=== PATIENT | male | born 1945 | race African-American/Black ===

== ENCOUNTER 2017-09-16 11:51 | Emergency (ER) | payer MEDICARE, BC ==
[2017-09-16 12:51] LABS: #Basophils 0.2 thou/uL (0.0-0.2); #Eosinphils 0.1 thou/uL (0.0-0.7); #Lymphocytes 2.3 thou/uL (1.20-3.40); #Monocytes 1.2 thou/uL (0.11-0.59); #Neutrophils 12.4 thou/uL (1.40-6.50); %Basophils 1.2 % (0.0-1.0); %Eosinophils 0.7 % (0.0-10.0); %Lymphocytes 14.2 % (21.0-51.0); %Monocytes 7.3 % (0.0-10.0); %Neutrophils 76.5 % (42.0-75.0); Hemoglobin 16.6 g/dL (14.0-18.0); Mean Corpuscular HGB CONC 31.5 g/dL (32.0-36.0); Mean Corpuscular Hemoglobin 26.3 pg (27.0-31.0); Mean Corpuscular Volume 83.4 fl (80.0-94.0); Mean Platelet Volume 6.8 fL (7.4-10.4); Platelet Count 256 thou/uL (130-400); RBC Distribution Width 13.3 % (11.5-14.5); White Blood Cell (WBC) Count 16.2 thou/uL (4.8-10.8)
--- NOTE | 2017-09-16 13:11 | RAD ---
RIGHT KNEE 4 VIEWS: Date: 09/16/17 HISTORY: Right knee pain. FINDINGS/IMPRESSION: Degenerative changes are present. There are osteophytes involving the superior and inferior aspects o f the anterior patella. There is fracture of the inferior and anterior patellar osteophyte close to t he patellar end. Since there are no previous exams, the age of this fracture cannot be determined. POS: HUI
[2017-09-16] MEDS ORDERED: predniSONE 20 MG TAB ONE (13:21)
[2017-09-16] MEDS ORDERED: Ibuprofen 200 MG TAB ONE (13:21)
== END 2017-09-16 13:30 | disposition home or self-care (01) ==
LOC: BURERS 11:51
DX: S82.001A Unspecified fracture of right patella, initial encounter for closed fracture (principal); M10.9 Gout, unspecified; I10 Essential (primary) hypertension; Z79.899 Other long term (current) drug therapy; X50.1XXA Overexertion from prolonged static or awkward postures, initial encounter
CPT/HCPCS: 36415; 84550; 85025; J7506